=== PATIENT | male | born 1970 | race Caucasian/White ===

== ENCOUNTER 2021-05-19 16:00 | Emergency (ER) | payer SELFPAY ==
--- NOTE | 2021-05-19 16:46 | EDM.PDOC ---
ED HPI GENERAL MEDICAL PROBLEM - General Chief Complaint: ENT Problem Stated Complaint: TOOTH PAIN Time Seen by Provider: 05/19/21 16:39 Source of Information: Reports: Patient, RN History Limitations: Reports: No Limitations - History of Present Illness INITIAL COMMENTS - FREE TEXT/NARRATIVE: Madi is a 50 year old male whom presents to ER for evaluation of right lower jaw pain concerning for dental infection. Madi reports right lower tooth pain over the last week with increased symptoms and jaw swelling the last 2 days. Madi is scheduled for hernia surgery repair tomorrow and concerned about oral infection limiting ability to have surgery completed. Madi has not had routine dental care in a number of years noting, right and left lower posterior molars chipped to gumline but only right lower jaw pain present today. Madi denies fever, chills sweats or systemic symptoms at this time. Tooth/Teeth Pain Score (Numeric/FACES): 6 - Related Data Allergies Allergy/AdvReac Type Severity Reaction Status Date / Time Penicillins Allergy Anaphylactic Verified 05/19/21 16:25 Shock Home Meds: Home Meds Chlorhexidine Gluconate 0.12% [Peridex 0.12% Rinse] 10 ml MM BID 10 Days #480 ml 05/19/21 [Rx] Clindamycin HCl 300 mg PO TID 10 Days #30 capsule 05/19/21 [Rx] Past Medical History - Past Health History Medical/Surgical History: Denies Medical/Surgical History - Infectious Disease History Infectious Disease History: Reports: Chicken Pox - Past Surgical History Other GI Surgeries/Procedures: scheduled to have hernia surgery on 05/20/21 Social & Family History - Tobacco Use Tobacco Use Status *Q: Current Every Day Tobacco User Years of Tobacco use: 35 Packs/Tins Daily: 0.5 - Caffeine Use Caffeine Use: Reports: Soda - Recreational Drug Use Recreational Drug Use: Yes Recreational Drug Type: Reports: Marijuana/Hashish Recreational Drug Use Frequency: Weekly ED ROS GENERAL - Review of Systems Review Of Systems: Comprehensive ROS is negative, except as noted in HPI. ED EXAM, GENERAL - Physical Exam Exam: See Below Exam Limited By: No Limitations General Appearance: Alert, WD/WN, Mild Distress Eye Exam: Bilateral Eye: Normal Inspection Ears: Hearing Grossly Normal Nose: Normal Inspection Throat/Mouth: No Airway Compromise, Other (chipped tooth right and left lower molars with localized swelling right lower gumline. No signs of abscess formation with visual examiantion or palpation of the affected area. ) Neck: Normal Inspection Respiratory/Chest: No Respiratory Distress, Normal Breath Sounds Cardiovascular: Normal Peripheral Pulses Course - Vital Signs Last Recorded V/S: Last Vital Signs Temp 36.4 C 05/19/21 16:19 Pulse 110 H 05/19/21 16:19 Resp 16 05/19/21 16:19 BP 133/85 05/19/21 16:19 Pulse Ox 100 05/19/21 16:19 Departure - Departure Time of Disposition: 16:58 Disposition: Home, Self-Care 01 Clinical Impression: Acute pain of mouth, Need for dental care - Discharge Information Prescriptions: Clindamycin HCl 300 mg PO TID 10 Days #30 capsule Chlorhexidine Gluconate 0.12% [Peridex 0.12% Rinse] 10 ml MM BID 10 Days #480 ml Referrals: PCP,None [Primary Care Provider] - Forms: ED Department Discharge Sepsis Event Note (ED) - Focused Exam Vital Signs: Vital Signs Temp Pulse Resp BP Pulse Ox 05/19/21 16:19 36.4 C 110 H 16 133/85 100
== END 2021-05-19 17:05 | disposition home or self-care (01) ==
LOC: JP.ED 16:00
DX: K13.79 Other lesions of oral mucosa (principal); Z88.0 Allergy status to penicillin; Z72.0 Tobacco use
CPT/HCPCS: 99283